=== PATIENT | male | born 1955 | race Caucasian/White ===

== ENCOUNTER 2018-10-02 10:56 | Emergency (ER) | payer OTHER ==
[2018-10-02 11:23] VITALS: BP 121/75
[2018-10-02] MEDS ORDERED: Ketorolac INJ* 30 MG/ML 1 ML VIAL IM ONE (12:28)
--- NOTE | 2018-10-02 12:36 | UC ---
Back Pain HPI - HPI Summary HPI Summary: 63-year-old male presents with complaints of right lower back pain for the past 5 days. States he had been doing a lot of driving and heavy lifting prior to the onset of his symptoms. States he has had similar episodes in the past. He has a history of lumbar fusion however he feels certain his pain is muscular in origin. States he typically uses Celebrex for pain however he ran out of his Celebrex a few days ago and is waiting for his prescription to come through the mail order. He did take a dose of ibuprofen 400 mg last evening with minimal relief. He contacted his primary care provider on Sunday who sent in a prescription for methocarbamol which he has been taking with little relief. Denies fever, chills, rash, numbness, tingling, weakness to his lower extremities, dysuria, frequency, urgency, hematuria, loss of bowel or bladder control. - History of Current Complaint Chief Complaint: UCBackPain Stated Complaint: BACK PAIN Time Seen by Provider: 10/02/18 12:15 Hx Obtained From: Patient Pain Intensity: 8 - Allergies/Home Medications Allergies/Adverse Reactions: Allergies Allergy/AdvReac Type Severity Reaction Status Date / Time enviromental Allergy Runny Nose Uncoded 10/02/18 11:23 Home Medications: Home Medications Methocarbamol 750 mg PO 10/02/18 [History] PMH/Surg Hx/FS Hx/Imm Hx Psychological History: Depression - Surgical History Surgical History: Yes Surgery Procedure, Year, and Place: Bicep reattachement 2010; Trigger Finger Release November 2013; Deviated Septum Correction 1997; Appendectomy 1966; lumbar l5 /s1 Laminectomy 1990, PARA-ESOPHOGIAL HERNIA, left breast bx - Family History Known Family History: Positive: Non-Contributory - Social History Occupation: Employed Full-time Lives: With Family Alcohol Use: Rare Substance Use Type: Marijuana Substance Use Comment - Amount & Last Used: once in a while Smoking Status (MU): Never Smoked Tobacco Review of Systems All Other Systems Reviewed And Are Negative: Yes Constitutional: Negative: Fever, Chills Skin: Negative: Rash Respiratory: Negative: Shortness Of Breath, Cough Cardiovascular: Negative: Palpitations, Chest Pain Gastrointestinal: Negative: Abdominal Pain, Vomiting, Diarrhea, Nausea Genitourinary: Negative: Dysuria, Hematuria, Frequency, Urgency Motor: Negative: Weakness Neurovascular: Negative: Decreased Sensation Musculoskeletal: Positive: Other: - See HPI Neurological: Negative: Weakness, Paresthesia, Numbness Is Patient Immunocompromised?: No Physical Exam - Summary Physical Exam Summary: GENERAL APPEARANCE: Well developed, well nourished, alert and cooperative, and appears to be in no acute distress. CARDIAC: Normal S1 and S2. No S3, S4 or murmurs. Rhythm is regular. There is no peripheral edema, cyanosis or pallor. Extremities are warm and well perfused. Capillary refill is less than 2 seconds. Peripheral pulses intact. LUNGS: Clear to auscultation without rales, rhonchi, wheezing or diminished breath sounds. ABDOMEN: Positive bowel sounds. Soft, nondistended, nontender. No guarding or rebound. No masses or hepatosplenomegally. MUSKULOSKELETAL: ROM intact to all extremities. No joint erythema or tenderness. Normal muscular development. Limping gait. BACK: Examination of the spine reveals normal posture, no midline spinal deformity or tenderness. Right lumbar paraspinous soft tissue tenderness without muscular spasm. NEUROLOGICAL: Strength and sensation symmetric to lower extremities. SKIN: Skin normal color, texture and turgor with no lesions or eruptions. Triage Information Reviewed: Yes Vital Signs: Initial Vital Signs Temp 99.7 F 10/02/18 11:19 Pulse 79 10/02/18 11:19 Resp 18 10/02/18 11:19 BP 121/75 10/02/18 11:19 Pulse Ox 97 10/02/18 11:19 Vital Signs Reviewed: Yes Back Pain Course/Dx - Course Course Of Treatment: 63-year-old male presents with complaints of right lower back pain for the past 5 days. States he had been doing a lot of driving and heavy lifting prior to the onset of his symptoms. States he has had similar episodes in the past. He has a history of lumbar fusion however he feels certain his pain is muscular in origin. States he typically uses Celebrex for pain however he ran out of his Celebrex a few days ago and is waiting for his prescription to come through the mail order. He did take a dose of ibuprofen 400 mg last evening with minimal relief. He contacted his primary care provider on Sunday who sent in a prescription for methocarbamol which he has been taking with little relief. Denies fever, chills, rash, numbness, tingling, weakness to his lower extremities, dysuria, frequency, urgency, hematuria, loss of bowel or bladder control. Afebrile. Vital signs stable. Exam revealed some right lumbar paraspinous soft tissue tenderness without spasm upon palpation otherwise exam was unremarkable. Patient was given ketorolac 30 mg IM in the clinic. I provided him with a prescription for naproxen 500 mg every 12 hours to use for the pain until he receives his Celebrex prescription. I'm recommending a continue to use the methocarbamol as directed for severe pain or spasm as well as symptomatic treatment. He is to follow-up with his primary care provider within 5 days if symptoms do not improve. Anticipatory guidance and warning symptoms were reviewed with the patient. Verbalizes understanding and agrees with plan of care. - Differential Dx/Diagnosis Differential Diagnosis/HQI/PQRI: Arthritis, Herniated Disc, Strain Provider Diagnosis: Acute low back pain Discharge - Sign-Out/Discharge Documenting (check all that apply): Patient Departure All imaging exams completed and their final reports reviewed: No Studies - Discharge Plan Condition: Stable Disposition: HOME Prescriptions: Naproxen [Naproxen 500 mg tab] 500 mg PO Q12HR #30 tablet Patient Education Materials: Acute Low Back Pain (ED) Referrals: Demetria Kim MD [Primary Care Provider] - 5 Days (If no improvement in symptoms.) Additional Instructions: You were given an injection of an anti-inflammatory called ketorolac (Toradol) at 12:45 pm in the clinic today for your back pain. You should not take any other anti-inflammatory medications including ibuprofen (Advil, Motrin), naproxen (Aleve), or aspirin for at least 8 hours after receiving the injection. I have provided you with a prescription for naproxen 500 mg 1 tablet every 12 hours for your pain until you receive your Celebrex in the mail and then you may resume taking this medication. You may start this at 8:45 pm tonight. I would recommend that you take it regularly every 12 hours for the next 5-7 days then may take as needed for pain. Continue to use the muscle relaxant prescribed to you by her primary care provider as directed. You may use either heat or cold therapy to the affected area to help with the pain. Follow-up with your primary care provider within 5 days if symptoms are not improving. Seek immediate medical attention in the emergency room if you have severe pain that is not being managed with the pain medication, you develop weakness, numbness, tingling in the lower extremities, lose control of her bowel or bladder, or have any worsening of symptoms. - Billing Disposition and Condition Condition: STABLE Disposition: Home
== END 2018-10-02 12:51 | disposition home or self-care (01) ==
LOC: UCEAST 10:56
DX: M54.5 Low back pain (principal); F32.9 Major depressive disorder, single episode, unspecified
CPT/HCPCS: 99212; G0463; J1885